=== PATIENT | female | born 1940 ===

== ENCOUNTER → 2020-06-29 | Outpatient (CLI) | payer OTHER | LOC: SJCVC 16:05 | PROVIDERS: ATTEND Internal Medicine Cardiovascular Disease | DX: R94.31 Abnormal electrocardiogram [ECG] [EKG] (principal); I25.10 Atherosclerotic heart disease of native coronary artery without angina pectoris; I10 Essential (primary) hypertension; E78.00 Pure hypercholesterolemia, unspecified; E11.9 Type 2 diabetes mellitus without complications; I65.23 Occlusion and stenosis of bilateral carotid arteries; Z82.49 Family history of ischemic heart disease and other diseases of the circulatory system ==